=== PATIENT | female | born 1980 | race Caucasian/White ===

== ENCOUNTER → 2018-12-22 | Outpatient (CLI) | payer OTHER ==
[~2018-12-22] MED LIST: HYDACE5 PO; PENVK500 PO
== END | disposition home or self-care (01) ==
LOC: LAB SHORT 09:40 → LAB EV 09:40
DX: N39.0 Urinary tract infection, site not specified (principal)
CPT/HCPCS: 87077; 87086; 87186

== ENCOUNTER → 2021-01-18 | Outpatient (CLI) | payer OTHER ==
[2021-01-18 17:47] LABS: BASOPHILS ABSOLUTE AUTO 0.05 K/mm3 (0.00-0.23); BASOPHILS PERCENT AUTO 1 % (0-2); EOSINOPHILS ABSOLUTE AUTO 0.14 K/mm3 (0.00-0.68); EOSINOPHILS PERCENT AUTO 2 % (0-6); Hematocrit 40.5 % (33.0-51.0); Hemoglobin 14.4 g/dL (11.5-16.0); IMMATURE GRAN ABSOLUTE AUTO 0.02 K/mm3 (0.00-0.10); IMMATURE GRAN PERCENT AUTO 0 % (0-1); LYMPHOCYTES ABSOLUTE AUTO 2.43 K/mm3 (0.84-5.20); LYMPHOCYTES PERCENT AUTO 29 % (21-46); MONOCYTES PERCENT AUTO 8 % (4-13); Mean Corpuscular HGB 31.6 pg (26.0-34.0); Mean Corpuscular HGB Conc 35.6 g/dL (31.5-36.5); Mean Corpuscular Volume 89 fL (80-100); Mean Platelet Volume 9.4 fL (9.1-12.4); NEUTROPHILS ABSOLUTE AUTO 5.08 K/mm3 (1.96-9.15); NEUTROPHILS PERCENT AUTO 60 % (41-73); Platelet Count 254 K/mm3 (150-400); RDW Coefficient Variation 12.3 % (11.7-14.2); RDW Standard Deviation 39.7 fL (35.1-46.3); Red Blood Cell Count 4.55 M/mm3 (3.80-5.20); White Blood Cell Count 8.42 K/mm3 (4.00-11.30)
[2021-01-18 18:03] LABS: Alanine Aminotransfer (ALT/SGP 65 U/L (12-78); Albumin, Blood 4.2 g/dL (3.4-5.0); Albumin/Globulin Ratio 1.2 (0.8-1.8); Alk Phos 97 U/L (40-126); Anion Gap 11 mmol/L (6-16); Aspartate Aminotrans (AST/SGOT 38 U/L (12-37); Bilirubin, Total 0.8 mg/dL (0.1-1.0); Blood Urea Nitrogen 14 mg/dL (8-24); Bun/Creatinine Ratio 16.7 (12.0-20.0); CO2, Blood 26 mmol/L (21-32); Calcium, Blood 8.6 mg/dL (8.5-10.1); Chloride, Blood 105 mmol/L (98-108); Creatinine, Blood 0.84 mg/dL (0.40-1.00); Globulin, Blood 3.6 g/dL (2.2-4.0); Glomerular Filtration Rate >60 (60-); Glucose, Blood 109 mg/dL (70-99); Potassium, Blood 3.7 mmol/L (3.5-5.5); Sodium, Blood 142 mmol/L (136-145); Thyroid Stimulating Hormone 1.579 uIU/mL (0.360-4.800); Total Protein, Blood 7.8 g/dL (6.4-8.2)
[2021-01-18 18:07] LABS: Troponin I <0.017 ng/mL (0.000-0.040)
== END | disposition home or self-care (01) ==
LOC: LAB 17:39 → LAB SHORT 17:39
PROVIDERS: Chiropractor
DX: R07.81 Pleurodynia (principal); R53.83 Other fatigue
CPT/HCPCS: 80053; 84443; 84484; 85025; 85379

== ENCOUNTER 2023-08-05 15:10 | Observation (INO) | payer OTHER ==
[~2023-08-05] VITALS: Ht 170.2 cm; Wt 105.4 kg
[2023-08-05 16:32] LABS: BASOPHILS ABSOLUTE AUTO 0.07 K/mm3 (0.00-0.23); BASOPHILS PERCENT AUTO 1 % (0-2); EOSINOPHILS ABSOLUTE AUTO 0.02 K/mm3 (0.00-0.68); EOSINOPHILS PERCENT AUTO 0 % (0-6); Hematocrit 42.1 % (33.0-51.0); Hemoglobin 15.1 g/dL (11.5-16.0); IMMATURE GRAN ABSOLUTE AUTO 0.07 K/mm3 (0.00-0.10); IMMATURE GRAN PERCENT AUTO 1 % (0-1); LYMPHOCYTES PERCENT AUTO 12 % (21-46); MONOCYTES ABSOLUTE AUTO 0.47 K/mm3 (0.16-1.47); MONOCYTES PERCENT AUTO 4 % (4-13); Mean Corpuscular HGB 31.7 pg (26.0-34.0); Mean Corpuscular HGB Conc 35.9 g/dL (31.5-36.5); Mean Corpuscular Volume 88 fL (80-100); NEUTROPHILS ABSOLUTE AUTO 9.31 K/mm3 (1.96-9.15); NEUTROPHILS PERCENT AUTO 82 % (41-73); RDW Coefficient Variation 12.1 % (11.7-14.2); RDW Standard Deviation 39.4 fL (35.1-46.3); Red Blood Cell Count 4.77 M/mm3 (3.80-5.20); White Blood Cell Count 11.34 K/mm3 (4.00-11.30)
[2023-08-05 16:44] LABS: Albumin, Blood 4.3 g/dL (3.4-5.0); Albumin/Globulin Ratio 1.1 (0.8-1.8); Bilirubin, Total 0.8 mg/dL (0.1-1.0); Bun/Creatinine Ratio 22.5 (12.0-20.0); Calcium, Blood 9.1 mg/dL (8.5-10.1); Creatinine, Blood 0.53 mg/dL (0.40-1.00); Globulin, Blood 3.8 g/dL (2.2-4.0); Potassium, Blood 4.2 mmol/L (3.5-5.5); Total Protein, Blood 8.1 g/dL (6.4-8.2)
[2023-08-05 16:52] LABS: Mean Platelet Volume 9.8 fL (9.1-12.4); Platelet Count 268 K/mm3 (150-400)
[2023-08-05] MEDS ORDERED: NS 1,000 ML IV SCH ×2 (19:30→19:35)
[2023-08-05] MEDS ORDERED: Piperacillin/Tazobactam Sod 4.5 GM in NS 100 ML IV ONE (19:30)
[2023-08-05] MEDS ORDERED: Ondansetron HCl 2 MG / ML 2ML Vial IV ONE (19:30)
[2023-08-05] MEDS ORDERED: HYDROmorphone HCl/Pf 1MG SYR IV ONE (19:30)
[2023-08-05] MEDS ORDERED: HYDROmorphone HCl/Pf 1MG SYR IV PRN (19:35)
[2023-08-05] MEDS ORDERED: Ondansetron HCl 2 MG / ML 2ML Vial IV PRN (19:35)
[2023-08-06] VITALS (14 sets, daily range): BP systolic 101–135; BP diastolic 58–89
--- NOTE | 2023-08-06 06:02 | NUR ---
SHIFT SUMMARY S/P ABD PAIN R/T BREANNA. NO ACUTE CHANGES OVERNIGHT. VSS. A&O x4. NPO SINCE MIDNIGHT R/T ANTICIPATED SURGERY LATER TODAY. IV FLUIDS INFUSING PER EMAR. PT SLEPT T/O MOST OF NIGHT. PT REPORTS ABD PAIN TOLERABLE, NOT REQUESTED MEDICATION OVERNIGHT. INDEPENDENT IN ROOM. CALL LIGHT IN REACH, BED IN LOWEST POSITION, WILL REPORT TO DAY RN.
[2023-08-06] MEDS ORDERED: Acetaminophen 325 MG TABLET PO PRN (07:05)
[2023-08-06 10:23] LABS: BASOPHILS ABSOLUTE AUTO 0.07 K/mm3 (0.00-0.23); BASOPHILS PERCENT AUTO 1 % (0-2); EOSINOPHILS ABSOLUTE AUTO 0.09 K/mm3 (0.00-0.68); EOSINOPHILS PERCENT AUTO 1 % (0-6); Hematocrit 41.1 % (33.0-51.0); Hemoglobin 14.1 g/dL (11.5-16.0); IMMATURE GRAN ABSOLUTE AUTO 0.02 K/mm3 (0.00-0.10); IMMATURE GRAN PERCENT AUTO 0 % (0-1); LYMPHOCYTES ABSOLUTE AUTO 2.24 K/mm3 (0.84-5.20); LYMPHOCYTES PERCENT AUTO 29 % (21-46); MONOCYTES PERCENT AUTO 8 % (4-13); Mean Corpuscular HGB 31.2 pg (26.0-34.0); Mean Corpuscular HGB Conc 34.3 g/dL (31.5-36.5); Mean Corpuscular Volume 91 fL (80-100); Mean Platelet Volume 9.5 fL (9.1-12.4); NEUTROPHILS ABSOLUTE AUTO 4.61 K/mm3 (1.96-9.15); NEUTROPHILS PERCENT AUTO 60 % (41-73); Platelet Count 231 K/mm3 (150-400); RDW Coefficient Variation 12.2 % (11.7-14.2); RDW Standard Deviation 40.6 fL (35.1-46.3); Red Blood Cell Count 4.52 M/mm3 (3.80-5.20); White Blood Cell Count 7.63 K/mm3 (4.00-11.30)
[2023-08-06] MEDS ORDERED: Lactated Ringer's 1,000 ML IV SCH (13:35)
--- NOTE | 2023-08-06 13:43 | NUR ---
PT TO OR
--- NOTE | 2023-08-06 13:53 | NUR ---
PT HAS 20G IV TO LEFT AC THAT FLUSHES WELL AND FLOWS TO GRAVITY.
[2023-08-06] MEDS ORDERED: Bupivacaine 0.5% HCl 5 MG/ML 30MLVIAL ONE (14:00)
[2023-08-06] MEDS ORDERED: CeFAZolin Sodium 2,000 MG in NS 50 ML IV SCH (14:05)
--- NOTE | 2023-08-06 14:20 | NUR ---
PT BELONGINGS TAKEN TO PERSONAL ROOM ON SURGICAL FLOOR RM [phone].
[2023-08-06] MEDS ORDERED: Midazolam HCl 1MG / ML 2ML Vial IV ONE (14:25)
[2023-08-06] MEDS ORDERED: propofoL 20 ML IV ONE (14:29)
[2023-08-06] MEDS ORDERED: Dexamethasone Sod Phos 10 MG/ML 1ML VIAL ONE (14:29)
[2023-08-06] MEDS ORDERED: Ondansetron HCl 2 MG / ML 2ML Vial ONE (14:29)
[2023-08-06] MEDS ORDERED: FentaNYL Citrate 50 MCG/ML 2 ML Injection ONE ×2 (14:29→15:17)
[2023-08-06] MEDS ORDERED: Rocuronium Bromide 10 MG/ML 5ML Injection IV ONE (14:29)
[2023-08-06] MEDS ORDERED: Sugammadex Sodium 200 MG/2ML SDV (100 MG/ML) ONE (14:29)
[2023-08-06] MEDS ORDERED: Lidocaine HCl 2% 20 ML MDV ONE (14:29)
[2023-08-06] MEDS ORDERED: Zolpidem Tartrate 5 MG Tab PO PRN (15:30)
[2023-08-06] MEDS ORDERED: FLU VACC QS2023-24(6MOS UP)/PF 60 MCG/0.5 ML SYRINGE IM PRN (15:30)
[2023-08-06] MEDS ORDERED: Ondansetron HCl 2 MG / ML 2ML Vial IV PRN (15:30)
[2023-08-06] MEDS ORDERED: HYDROcodone 10-APAP 325 TAB PO PRN (15:30)
[2023-08-06] MEDS ORDERED: NS 1,000 ML IV SCH (15:35)
[2023-08-06] MEDS ORDERED: HYDROmorphone 1 MG/ML 30 ML Bag IV PRN (15:35)
[2023-08-06] MEDS ORDERED: Ketorolac Tromethamine 30mg Vial IV PRN (15:40)
[2023-08-06] MEDS ORDERED: HYDROmorphone HCl/Pf 1MG SYR ONE ×2 (15:43→16:11)
--- NOTE | 2023-08-06 16:58 | NUR ---
SUMMARY PT ARRIVED TO UNIT FROM PACU. TRANSFERRED PT FROM [facility] TO BED. IV FLUIDS INFUSING. VSS. PT'S 02 100% ON 3L NC. PT REPORTED 9/10 ABD PAIN. MEDICATED PER ORDERS W/TORADOL. WATER AND JELLO PROVIDED, PT TAKING SIPS OF WATER. FAMILY BEDSIDE. CALL LIGHT IN REACH.
[2023-08-07 00:14] VITALS: BP 115/68
[2023-08-07 02:23] VITALS: BP 129/71
--- NOTE | 2023-08-07 04:55 | NUR ---
SHIFT SUMMARY POD 1 LAP BREANNA PT ABLE TO REST DURING THE SHIFT. PAIN MANAGED PER EMAR. X4 LAP SITES WITH STERI STRIPS, C/D/I. TOLERATING PO INTAKE, VOIDING. VSS. NO OTHER CONCERNS AT THIS TIME, CALL LIGHT WITHIN REACH
[2023-08-07 07:23] VITALS: BP 117/72
[2023-08-07] MEDS ORDERED: Enoxaparin 40 MG/0.4 ML SYR SC SCH (09:00)
--- NOTE | 2023-08-07 13:42 | NUR ---
"Spiritual Care | Pt. Request Pt. is awake and standing in her room awaiting discharge. Facilitate a short life review. The Pt. verbalized gratitude for the spiritual care visit."
[2023-08-07] MEDS ORDERED: Percocet 5-3251 EACH PO (14:21)
--- NOTE | 2023-08-07 14:56 | NUR ---
DC SUMMARY PT POD #1 FOR LAP BREANNA. PT AMBULATING AND PASSING GAS. PAIN CONTROLLED WITH ORAL PAIN MEDS. PT DC'D HOME WITH FAMILY MEMBER. GIVEN HARD SCRIPT FOR PAIN MEDICATION.
== END 2023-08-07 14:52 | disposition home or self-care (01) ==
LOC: ER 15:10 → SURS 15:11 → ERHOLD 15:11 → SURS 21:15
PROVIDERS: Physician Assistant; Student in an Organized Health Care Education/Training Program; Surgery; ADMIT Surgery
PROC: 0FT44ZZ Resection of Gallbladder, Percutaneous Endoscopic Approach (ICD-10-PCS; principal; 2023-08-06 14:00)
DX: K80.12 Calculus of gallbladder with acute and chronic cholecystitis without obstruction (principal); K21.9 Gastro-esophageal reflux disease without esophagitis; E66.9 Obesity, unspecified; Z72.0 Tobacco use
CPT/HCPCS: 36415; 76705; 80053; 83690; 84703; 85025; 88304; 96365; 96375; 99285-25; A9270; G0378; J0690; J1100; J1170; J1650; J1885; J2250; J2405; J2543; J2704; J3010; J7030; J7120

== ENCOUNTER 2024-04-08 06:07 | Day surgery (SDC) | payer OTHER ==
[~2024-04-08] VITALS: Ht 170.2 cm; Wt 101.6 kg
[~2024-04-08 06:07] MED LIST changes: +AMOCLA875 PO; +HYDR1TAB94 PO; +MIRALAX17 GM PO; +ONDA4ODT MM; +Percocet 5-3251 EACH PO
[2024-04-08] MEDS ORDERED: CeFAZolin Sodium 2,000 MG VIAL ONE (06:27)
[2024-04-08] MEDS ORDERED: NS 50 ML IV ONE (06:28)
[2024-04-08] MEDS ORDERED: Lactated Ringer's 1,000 ML IV ONE ×2 (06:53→07:26)
[2024-04-08] MEDS ORDERED: propofoL 20 ML IV ONE (06:58)
[2024-04-08] MEDS ORDERED: Midazolam HCl 1MG / ML 2ML Vial ONE (06:59)
--- NOTE | 2024-04-08 07:12 | NUR ---
04/08/24 0712 Ramila Roach BLOCK TIMEOUT 0708 BLOCK STARTED 0710 BLOCK FINISHED 711
[2024-04-08] MEDS ORDERED: Ondansetron HCl 2 MG / ML 2ML Vial ONE (07:34)
[2024-04-08] MEDS ORDERED: Bupivacaine 0.5% HCl 5 MG/ML 30MLVIAL ONE (07:34)
[2024-04-08] MEDS ORDERED: Rocuronium Bromide 10 MG/ML 5ML Injection IV ONE (07:34)
[2024-04-08] MEDS ORDERED: CeFAZolin Sodium 1000 mg Vial ONE (07:34)
[2024-04-08] MEDS ORDERED: Dexamethasone Sod Phos 10 MG/ML 1ML VIAL ONE (07:34)
[2024-04-08] MEDS ORDERED: FentaNYL Citrate 50 MCG/ML 2 ML Injection ONE ×2 (07:39→09:51)
[2024-04-08] MEDS ORDERED: Sugammadex Sodium 200 MG/2ML SDV (100 MG/ML) ONE (07:48)
[2024-04-08] MEDS ORDERED: Ketorolac Tromethamine 30mg Vial ONE (08:22)
[2024-04-08] MEDS ORDERED: Metoclopramide HCl 5MG / ML 2ML Vial ONE (09:47)
[2024-04-08 09:48] VITALS: BP 117/86
[2024-04-08] MEDS ORDERED: Glycopyrrolate 0.2 MG/ML 5ML VIAL ONE (09:51)
--- NOTE | 2024-04-08 10:28 | NUR ---
04/08/24 1028 Ramila Roach DID NOT SCAN PT IN, HAD TO ENTER MANUALLY. GAVE REGLAM 10 MG/2ML
== END 2024-04-08 10:15 | disposition home or self-care (01) ==
LOC: ORSCSDS 06:07
DX: M76.61 Achilles tendinitis, right leg (principal); M25.774 Osteophyte, right foot; Z87.891 Personal history of nicotine dependence; Z68.35 Body mass index [BMI] 35.0-35.9, adult
CPT/HCPCS: C1713; J0690; J1100; J1885; J2250; J2405; J2704; J2765; J3010; J7120